=== PATIENT | female | born 1940 | race Caucasian/White ===

== ENCOUNTER 2018-06-07 04:57 | Emergency (ER) | payer MEDICARE, OTHER ==
[2018-06-07 05:11] VITALS: O2SAT 98
[2018-06-07] MEDS ORDERED: Dextrose 5% -0.45 NaCl 1000 ML 1,000 ML IV SCH (05:15)
--- NOTE | 2018-06-07 05:21 | ERPHSYRPT ---
- History of Present Illness Time Seen by Provider: 06/07/18 05:12 Source: patient Exam Limitations: no limitations Patient Subjective Stated Complaint: per ems, pt's blood sugar was low at home Triage Nursing Assessment: pt awake, alert and oriented, asnwers questions approp. pt arrive per ambulance, transfer to stretcher with assist of 4. respirations nonlabored with lungs cta. pupils equal and reactive. bilat upper and lower ext strength equal, wnl. Physician History: 77-year-old white female arrives with complaint of decreased level of consciousness at home patient's family members stated that they've done a blood sugar and noted to have a blood sugar in the 200s however when medics arrived patient was noted to have a blood sugar of 36-48. Medics state that they gave the patient one amp of D50 she arrives she is alert oriented 3. Patient states she has not been ill lately she denies any chest pain shortness of breath she denies any urinary symptoms past medical history includes cataracts, hyperlipidemia, diabetes type 2, hypothyroidism Past surgical history includes appendectomy cholecystectomy hysterectomy cataracts and back surgery Social history patient denies tobacco alcohol or illicit drug use . Timing/Duration: today (just prior to arrival) Severity: moderate Modifying Factors: Improves With: nothing Associated Symptoms: other (confused with decreased level of consciousness and low blood sugars at home this am), No nausea, No vomiting, No abdominal pain, No shortness of breath, No heartburn, No diaphoresis, No cough, No chills, No chest pain, No fever, No headaches, No loss of appetite, No malaise, No rash, No syncope, No seizure, No weakness Allergies/Adverse Reactions: codeine Allergy (Mild, Verified 06/07/18 05:11) "feel floaty" Home Medications: Aspirin EC 81 mg [Ecotrin 81 mg] 81 mg PO UD 03/29/13 [History] Insulin Detemir [Levemir] 24 unit SQ HS 03/29/13 [History] Levothyroxine Sodium 100 Mcg [Synthroid 100 Mcg] 100 mcg PO DAILY 03/29/13 [History] Pravastatin Sodium [Pravachol] 40 mg PO HS 03/29/13 [History] Insulin Detemir [Levemir] 6 unit SQ DAILY 06/13/16 [History] Hx Tetanus, Diphtheria Vaccination/Date Given: Yes Hx Influenza Vaccination/Date Given: No Hx Pneumococcal Vaccination/Date Given: Yes Immunizations Up to Date: Yes - Review of Systems Constitutional: No Fever, No Chills Eyes: No Symptoms Ears, Nose, & Throat: No Symptoms Respiratory: No Cough, No Dyspnea Cardiac: No Chest Pain, No Edema, No Syncope Abdominal/Gastrointestinal: No Abdominal Pain, No Nausea, No Vomiting, No Diarrhea Genitourinary Symptoms: No Dysuria Musculoskeletal: No Back Pain, No Neck Pain Skin: No Rash Neurological: Other (Confused and decreased LOC at home this am), No Dizziness, No Focal Weakness, No Gait Changes, No Headache, No Irritability, No Lethargy, No Paralysis, No Parasthesia, No Seizure, No Sensory Changes, No Speech Changes , No Tics, No Tremors, No Vertigo Psychological: No Symptoms Endocrine: Other (decreased blood sugars this am), No Polyuria, No Polydipsia, No Hair Changes, No Cold Intolerance, No Excessive Sweating Hematologic/Lymphatic: No Symptoms All Other Systems: Reviewed and Negative - Past Medical History Pertinent Past Medical History: Yes Neurological History: No Pertinent History ENT History: Cataracts Cardiac History: High Cholesterol Respiratory History: No Pertinent History Endocrine Medical History: Diabetes Type II, Hypothyroidism Musculoskeletal History: No Pertinent History GI Medical History: No Pertinent History History: No Pertinent History Psycho-Social History: No Pertinent History Female Reproductive Disorders: No Pertinent History - Past Surgical History Past Surgical History: Yes Neuro Surgical History: No Pertinent History Cardiac: No Pertinent History Respiratory: No Pertinent History Gastrointestinal: Appendectomy, Cholecystectomy Genitourinary: No Pertinent History Musculoskeletal: Orthopedic Surgery Female Surgical History: Hysterectomy Other Surgical History: BACK - Social History Smoking Status: Never smoker Exposure to second hand smoke: No Drug Use: none Patient Lives Alone: No (with sister) - Nursing Vital Signs Nursing Vital Signs: Initial Vital Signs Pulse Rate 82 06/07/18 04:59 Respiratory Rate 18 06/07/18 04:59 Blood Pressure 185/92 06/07/18 04:59 O2 Sat by Pulse Oximetry 98 06/07/18 04:59 Pain Scale Pain Intensity 0 - Physical Exam General Appearance: no apparent distress, alert Eye Exam: PERRL/EOMI, eyes nml inspection Ears, Nose, Throat Exam: normal ENT inspection, TMs normal, pharynx normal, moist mucous membranes Neck Exam: normal inspection, non-tender, supple, full range of motion Respiratory Exam: normal breath sounds, lungs clear, No respiratory distress Cardiovascular Exam: regular rate/rhythm, normal heart sounds, normal peripheral pulses Gastrointestinal/Abdomen Exam: soft, normal bowel sounds, No tenderness, No mass Back Exam: normal inspection, normal range of motion, No CVA tenderness, No vertebral tenderness Extremity Exam: normal inspection, normal range of motion, pelvis stable Neurologic Exam: alert, oriented x 3, cooperative, search strategist II-XII nml as tested, normal mood/affect, nml cerebellar function, nml station & gait, sensation nml, No motor deficits Skin Exam: normal color, warm, dry, No rash Lymphatic Exam: No adenopathy SpO2 Interpretation: normal (98%) SpO2: 98 Oxygen Delivery: Room Air - Course Nursing assessment & vital signs reviewed: Yes EKG Interpreted by Me: RATE (77 bpm), Sinus Rhythm, NORMAL AXIS, Other (EKG, sinus rhythm with first degree AV block, 77 bpm, no acute ST or T wave changes noted) Ordered Tests: Active Orders 24 hr Category Date Time Status Accucheck STAT Care 06/07/18 05:09 Active Accucheck STAT Care 06/07/18 06:21 Active Accucheck STAT Care 06/07/18 06:58 Active EKG-ER Only STAT Care 06/07/18 05:09 Active IV Insertion STAT Care 06/07/18 05:09 Active Pulse Oximetry (ED) STAT Care 06/07/18 05:09 Active CBC W DIFF Stat Lab 06/07/18 05:42 Completed CMP Stat Lab 06/07/18 05:42 Completed UA W/RFX UR CULTURE Stat Lab 06/07/18 06:33 Completed Medication Summary Generic Name Dose Route Start Last Admin Trade Name Freq PRN Reason Stop Dose Admin Dextrose/Sodium Chloride 1,000 mls @ 100 mls/hr 06/07/18 05:15 06/07/18 05:29 Dextrose 5% -0.45 Nacl 1000 Ml IV 07/07/18 05:14 100 mls/hr .Q10H KARI Administration Lab/Rad Data: Laboratory Result Diagrams 06/07/18 05:42 06/07/18 05:42 Laboratory Results 11/22/18 11/22/18 11/22/18 Range/Units 06:33 05:42 05:42 WBC 5.5 (4.0-10.5) K/mm3 RBC 3.77 L (4.1-5.4) M/mm3 Hgb 11.7 L (12.0-16.0) gm/dl Hct 36.6 (35-47) % MCV 97.1 (78-100) fl MCH 31.0 (26-32) pg MCHC 32.0 (32-36) g/dl RDW 13.3 (11.5-14.0) % Plt Count 143 L (150-450) K/mm3 MPV 10.7 H (6-9.5) fl Gran % 75.3 H (36.0-66.0) % Eos # (Auto) 0.05 (0-0.5) Absolute Lymphs (auto) 0.91 L (1.0-4.6) Absolute Monos (auto) 0.38 (0.0-1.3) Lymphocytes % 16.5 L (24.0-44.0) % Monocytes % 6.9 (0.0-12.0) % Eosinophils % 0.9 (0.00-5.0) % Basophils % 0.4 (0.0-0.4) % Absolute Granulocytes 4.14 (1.4-6.9) Basophils # 0.02 (0-0.4) Sodium 138 (137-145) mmol/L Potassium 4.0 (3.5-5.1) mmol/L Chloride 105 (98-107) mmol/L Carbon Dioxide 22 (22-30) mmol/L Anion Gap 14.2 (5-15) MEQ/L BUN 28 H (7-17) mg/dL Creatinine 0.71 (0.52-1.04) mg/dL Estimated GFR > 60.0 ML/MIN Glucose 146 H (74-106) mg/dL Calcium 9.3 (8.4-10.2) mg/dL Total Bilirubin 0.30 (0.2-1.3) mg/dL AST 41 H (14-36) U/L ALT 25 (0-35) U/L Alkaline Phosphatase 76 (38-126) U/L Serum Total Protein 7.6 (6.3-8.2) g/dL Albumin 4.3 (3.5-5.0) g/dL Urine Color STRAW (YELLOW) Urine Appearance CLEAR (CLEAR) Urine pH 6.0 (5-6) Ur Specific [place] 1.011 (1.005-1.025) Urine Protein 30 (Negative) Urine Ketones NEGATIVE (NEGATIVE) Urine Blood NEGATIVE (0-5) Norris/ul Urine Nitrite NEGATIVE (NEGATIVE) Urine Bilirubin NEGATIVE (NEGATIVE) Urine Urobilinogen NEGATIVE (0-1) mg/dL Ur Leukocyte Esterase NEGATIVE (NEGATIVE) Urine WBC (Auto) NONE (0-5) /HPF Urine RBC (Auto) NONE (0-2) /HPF U Epithel Cells (Auto) NONE (FEW) /HPF Urine Mucus (Auto) SLIGHT (NEGATIVE) /HPF Urine Culture Reflexed NO (NO) Urine Glucose 50 (NEGATIVE) mg/dL - Progress Progress: improved Progress Note: 06/07/18 06:58 77-year-old white female arrives with complaint of hypoglycemic episode at home. Patient was given one amp of D50 at home. She has been placed on D5 normal saline here in the emergency room patient's labs are normal. Patient is feeling much better and wants to go home. Patient's Accu-Chek 219. I've asked the nurses shut off her D5 normal saline. Will repeat Accu-Chek one half hour after shutting off D5 normal saline patient will be discharged if stable. - Departure Time of Disposition: 06:59 Departure Disposition: Home Clinical Impression: hypoglycemic episode, Mental status change resolved Condition: Fair Critical Care Time: No Referrals: KRISTI FAIR [Primary Care Provider] - Additional Instructions: Return home. Monitor your blood sugars today. Follow-up with your family doctor. Return or follow-up with your family doctor if problems. Return for acute distress or for severe symptoms.
[2018-06-07] MEDS ORDERED: Dextrose 5% -0.45 NaCl 1000 ML 1,000 ML IV ONE (05:24)
[2018-06-07 05:43] LABS: BASOPHIL % 0.4 % (0.0-0.4); Basophil (Absolute #) 0.02 (0-0.4); Eosinophil % 0.9 % (0.00-5.0); Eosinophil (Absolute #) 0.05 (0-0.5); Granulocyte Absolute (ANC) 4.14 (1.4-6.9); Granulocytes % 75.3 % (36.0-66.0); Hematocrit 36.6 % (35-47); Hemoglobin 11.7 gm/dl (12.0-16.0); Lymphocyte (Absolute #) 0.91 (1.0-4.6); Lymphocytes % 16.5 % (24.0-44.0); Mean Cell Volume 97.1 fl (78-100); Mean Platelet Volume 10.7 fl (6-9.5); Monocyte (Absolute #) 0.38 (0.0-1.3); Monocytes % 6.9 % (0.0-12.0); Platelet Count 143 K/mm3 (150-450); Red Blood Count 3.77 M/mm3 (4.1-5.4); Red Cell Distribution Width 13.3 % (11.5-14.0); White Blood Count 5.5 K/mm3 (4.0-10.5)
[2018-06-07 06:06] LABS: ALBUMIN 4.3 g/dL (3.5-5.0); ALKALINE PHOSPHATASE 76 U/L (38-126); ANION GAP 14.2 MEQ/L (5-15); BLOOD UREA NITROGEN 28 mg/dL (7-17); CHLORIDE 105 mmol/L (98-107); Calcium 9.3 mg/dL (8.4-10.2); Carbon Dioxide 22 mmol/L (22-30); Creatinine 1 0.71 mg/dL (0.52-1.04); Glucose 146 mg/dL (74-106); SGOT/AST 41 U/L (14-36); SGPT/ALT 25 U/L (0-35); SODIUM 138 mmol/L (137-145); Total Protein 7.6 g/dL (6.3-8.2)
[2018-06-07 06:32] VITALS: BP 149/87; PULSE 67
[2018-06-07 06:32] LABS: Appearance CLEAR (CLEAR); Bilirubin NEGATIVE (NEGATIVE); Blood NEGATIVE Ery/ul (0-5); Glucose 50 mg/dL (NEGATIVE); Ketones NEGATIVE (NEGATIVE); Leukocyte Esterase NEGATIVE (NEGATIVE); Nitrite NEGATIVE (NEGATIVE); Protein,Urine Dip 30 (Negative); Specific Gravity 1.011 (1.005-1.025); Urobilinogen NEGATIVE mg/dL (0-1)
== END 2018-06-07 07:43 | disposition home or self-care (01) ==
LOC: ED 04:57
DX: E11.649 Type 2 diabetes mellitus with hypoglycemia without coma (principal); Z79.899 Other long term (current) drug therapy; Z79.4 Long term (current) use of insulin
CPT/HCPCS: 36000; 36415; 80053; 81001; 82962; 85025; 93005; 96360; 99284

== ENCOUNTER 2020-11-28 11:47 | Emergency (ER) | payer MEDICARE, OTHER ==
--- NOTE | 2020-11-28 12:49 | ERPHSYRPT ---
- History of Present Illness Time Seen by Provider: 11/28/20 12:43 Source: patient Exam Limitations: no limitations Patient Subjective Stated Complaint: Pt states "I have diabetes and I have a spot on my foot starting and I thought I should get it checked out." Triage Nursing Assessment: Pt presented alert and oriented x3, skin pwd Pt ambulates with a slow gait and slight limp. Pt has approx 4 cm x3 cm wound developing, non blanching, tough hard skin, mildly tender Physician History: Patient is 80-year-old female with significant past medical history of diabetes insulin-dependent developed scab on her right foot bottom of the great toe 2 days ago with some scab formation. Because of her diabetic status she wants to be checked out for wound. She denies any other symptoms Timing/Duration: yesterday Associated Symptoms: denies symptoms Allergies/Adverse Reactions: codeine Allergy (Mild, Verified 06/07/18 05:11) "feel floaty" Home Medications: Aspirin EC 81 mg [Ecotrin 81 mg] 81 mg PO UD 03/29/13 [History] Levothyroxine Sodium 100 Mcg [Synthroid 100 Mcg] 100 mcg PO DAILY 03/29/13 [History] Pravastatin Sodium [Pravachol] 40 mg PO HS 03/29/13 [History] Insulin Glargine,Hum.rec.anlog [Toujeo Solostar] 300 unit SQ DAILY 11/28/20 [History] lisinopriL [Lisinopril] 2.5 mg PO DAILY 11/28/20 [History] Hx Tetanus, Diphtheria Vaccination/Date Given: Yes Hx Influenza Vaccination/Date Given: Yes Hx Pneumococcal Vaccination/Date Given: No Immunizations Up to Date: Yes Travel Risk - International Travel Have you traveled outside of the country in past 3 weeks: No - Coronavirus Screening Are you exhibiting any of the following symptoms?: No Close contact with a COVID-19 positive Pt in past 14-21 Days: No - Vaccine Status Have you recieved a Covid-19 vaccination: Yes Bending Frame Operator: Moderna - Vaccination Dates Date of 2cond Vaccination (if applicable): 09/11/2020 - Review of Systems Constitutional: No Symptoms Eyes: No Symptoms Ears, Nose, & Throat: No Symptoms Respiratory: No Symptoms Cardiac: No Symptoms Abdominal/Gastrointestinal: No Symptoms Genitourinary Symptoms: No Symptoms Musculoskeletal: No Symptoms Skin: Induration (right base of great toe) - Past Medical History Pertinent Past Medical History: Yes Neurological History: No Pertinent History ENT History: Cataracts Cardiac History: High Cholesterol Respiratory History: No Pertinent History Endocrine Medical History: Diabetes Type II, Hypothyroidism Musculoskeletal History: No Pertinent History GI Medical History: No Pertinent History History: No Pertinent History Psycho-Social History: No Pertinent History Female Reproductive Disorders: No Pertinent History - Past Surgical History Past Surgical History: Yes Neuro Surgical History: No Pertinent History Cardiac: No Pertinent History Respiratory: No Pertinent History Gastrointestinal: Appendectomy, Cholecystectomy Genitourinary: No Pertinent History Musculoskeletal: Orthopedic Surgery Female Surgical History: Hysterectomy Other Surgical History: BACK - Social History Smoking Status: Never smoker Exposure to second hand smoke: Yes Drug Use: none Patient Lives Alone: No - Female History Hx Now: No - Nursing Vital Signs Nursing Vital Signs: Initial Vital Signs Temperature 98.3 F 11/28/20 12:24 Pulse Rate 95 H 11/28/20 12:24 Respiratory Rate 20 11/28/20 12:24 Blood Pressure 169/68 11/28/20 12:24 O2 Sat by Pulse Oximetry 100 11/28/20 12:24 Pain Scale Pain Intensity 1 - Physical Exam General Appearance: no apparent distress Eye Exam: PERRL/EOMI Ears, Nose, Throat Exam: normal ENT inspection Neck Exam: normal inspection Respiratory Exam: normal breath sounds Cardiovascular Exam: regular rate/rhythm Gastrointestinal/Abdomen Exam: soft Extremity Exam: normal inspection, other (scab at right great toe base) Neurologic Exam: alert, oriented x 3 Skin Exam: normal color Lymphatic Exam: No adenopathy SpO2 Interpretation: normal SpO2: 100 O2 Delivery: Room Air - Course Nursing assessment & vital signs reviewed: Yes - Progress Progress: unchanged Counseled pt/family regarding: diagnosis, need for follow-up (with payroll consultant ) - Departure Departure Disposition: Home Clinical Impression: Diabetic foot ulcer Qualifiers: Diabetic foot ulcer location: toe Diabetes mellitus type: type 2 Laterality: right Non-pressure ulcer stage: limited to breakdown of skin Qualified Code(s): E11.621 - Type 2 diabetes mellitus with foot ulcer; L97.511 - Non-pressure chronic ulcer of other part of right foot limited to breakdown of skin Condition: Stable Critical Care Time: No Referrals: KRISTI FAIR [Primary Care Provider] - Follow Up with PCP/3 days (follow up with Dr John (Podiatry) on monday, walk in at 9 AM 11/30/2020) Instructions: Wound Care (DC) Additional Instructions: see payroll consultant on Monday morning at 9 AM. It is a walk-in clinic so you can walk-in and been seen by Dr. John. Call your diabetic doctor and let her know if she can see you earlier then your regular appointment. Discharge/Care Plan ELOINA ARCHIBALD was seen on 11/28/20 in the Emergency Room. The patient was counseled regarding Diagnosis,Lab results, Imaging studies, need for follow up and when to return to the Emergency Room. Prescriptions given: Discharge Note I have spoken with the patient and/or caregivers. I have explained the patient's condition, diagnosis and treatment plan based on the information available to me at this time. I have answered the patient's and/or caregiver's questions and addressed any concerns. The patient and/or caregivers have as good understanding of the patient's diagnosis, condition and treatment plan as can be expected at this point. The vital signs have been stable. The patient's condition is stable and appropriate for discharge from the emergency department. The patient will pursue further outpatient evaluation with the primary care physician or other designated or consulting physician as outlined in the discharge instructions. The patient and/or caregivers are agreeable to this plan of care and follow-up instructions have been explained in detail. The patient and/or caregivers have received these instruction. The patient/and or caregivers are aware that any significant change in condition or worsening of symptoms should prompt an immediate return to this or the closest emergency department or call 911. Prescriptions: Cephalexin Mh 500 mg [Keflex 500 mg] 500 mg PO Q6H #40 capsule
[2020-11-28 13:15] VITALS: BP 138/56; PULSE 85; O2SAT 95
== END 2020-11-28 13:36 | disposition home or self-care (01) ==
LOC: ED 11:47
DX: L97.511 Non-pressure chronic ulcer of other part of right foot limited to breakdown of skin (principal); E11.621 Type 2 diabetes mellitus with foot ulcer; E03.9 Hypothyroidism, unspecified; Z79.899 Other long term (current) drug therapy
CPT/HCPCS: 99283

== ENCOUNTER 2021-11-01 11:56 | Day surgery (SDC) | payer MEDICARE ==
--- NOTE | 2021-11-01 08:08 | HP ---
DATE OF SURGERY: 11/01/2021 HISTORY OF PRESENT ILLNESS: The patient is an 81-year-old with irregular skin lesion left upper extremity, left neck nodule or cyst and left axilla nodule or cyst. No pain but given the persistence she is interested in biopsy. She had a benign mammogram. She had an ultrasound with question whether she had subcutaneous cyst. She desires excision for definitive treatment. She is worried about the risk of infection. PAST MEDICAL HISTORY: Diabetes, hypothyroidism, hyperlipidemia. PAST SURGICAL HISTORY: Appendectomy. Hysterectomy. Back surgery. Cholecystectomy. MEDICATIONS: Pravastatin, levothyroxine, Humalog, Toujeo. ALLERGIES: CODEINE. FAMILY HISTORY: Heart disease, diabetes, cancer. SOCIAL HISTORY: No alcohol abuse. REVIEW OF SYSTEMS: Fourteen systems reviewed. Negative or noncontributory as above and per preadmission questionnaire. PHYSICAL EXAMINATION: GENERAL: No acute distress. HEENT: Sclerae nonicteric. NECK: No JVD. SKIN: She does have a nodule or a cyst in the left neck, additionally left axilla nodular cyst. She has on left upper extremity irregular pigmented lesion of indeterminate behavior in need of excision. CHEST: Equal excursion, nonlabored breathing. CVS: Regular rate and rhythm. ABDOMEN: Soft, nontender. EXTREMITIES: No cyanosis. Otherwise pertinent for as mentioned above. NEURO: Alert, oriented, moving extremities grossly symmetrically. PSYCH: Appropriate mood and affect. IMPRESSION: She has left neck nodule or cyst in need of excision as well as left axilla nodule or cyst and left upper extremity irregular pigmented lesion of indeterminate behavior in need of excision, will excise as an outpatient under general anesthesia. General risk of bleeding or infection, dehiscence possibly requiring packing, general risk of aches, pains, burning or numbness possibly mcc but not limited to. What we excise will not recur but could get similar nodule or cyst adjacent to or elsewhere on her body. Will proceed with proceed with excisional biopsy of left upper extremity irregular pigment lesion of indeterminate behavior, excisional biopsy of left neck nodule or cyst, excisional biopsy of left axilla nodule or cyst as an outpatient.
[2021-11-01] MEDS ORDERED: CEFAZOLIN 2 GM-D5W BAG** 2 GM/50 ML ML IV SCH (12:30)
[2021-11-01] MEDS ORDERED: Lactated Ringers 1,000 ML IV SCH (12:30)
[2021-11-01] MEDS ORDERED: CEFAZOLIN 2 GM-D5W BAG** 2 GM/50 ML ML IV ONE (12:31)
[2021-11-01] MEDS ORDERED: Lactated Ringers 1,000 ML IV ONE (12:31)
[2021-11-01] MEDS ORDERED: SUBLIMAZE 100 MCG/2 ML ONE (16:16)
[2021-11-01] MEDS ORDERED: DIPRIVAN 200 MG/20 ML IV ONE (16:16)
[2021-11-01] MEDS ORDERED: Sensorcaine 0.25% 10 ML ONE (16:20)
[2021-11-01 18:25] VITALS: O2SAT 92
[2021-11-01 18:40] VITALS: BP 176/86; PULSE 70
--- NOTE | 2021-11-02 09:59 | OP ---
SURGERY DATE/TIME: 11/01/2021 1615 PREOPERATIVE DIAGNOSES: 1) Enlarging lesion of indeterminate behavior left axilla. 2) Enlarging subcutaneous nodule upper posterior arm near the axilla. 3) Enlarging left neck cyst. POSTOPERATIVE DIAGNOSES: 1) Enlarging lesion of indeterminate behavior left axilla. 2) Enlarging subcutaneous nodule upper posterior arm near the axilla. 3) Enlarging left neck cyst. PROCEDURES: 1) Excisional biopsy of 2.3 cm lipomatous density posterior upper left arm with intermediate closure. 2) Excisional biopsy of anterior upper arm lesion indeterminate behavior approximately 2 cm with margins with intermediate closure. 3) Excisional biopsy of lower upper arm irregular lesion of indeterminate behavior approximately 5 cm with margins with intermediate closure. 4) Excisional biopsy of upper left axilla approximately 3 cm indeterminate behavior incised en bloc approximately 3 cm with margins with intermediate closure. 5) Excisional biopsy of the lower left axilla lesion of indeterminate behavior approximately 1.5 cm with margins with intermediate closure. 6) Excisional biopsy of left neck cyst approximately 1.5 cm. SURGEON: Dr. Manolo Ragland. ANESTHESIA: General. ESTIMATED BLOOD LOSS: Minimal. INDICATIONS: As noted above. Risks and benefits explained in detail and not limited to and consent obtained. DESCRIPTION OF PROCEDURE AND FINDINGS: The patient is taken to the operating room. Prior to putting her asleep, she confirmed the locations and the lesions were marked and confirmed. General anesthesia induced. She is prepped and draped in the usual sterile fashion. After official time out and no disagreement with planned procedure, starting first at the upper arm anterior marking out around the irregular lesion of indeterminate behavior. Dissection carried down to normal appearing subcutaneous tissue this is closed with 3-0 Vicryl and 4-0 Vicryl. It measured about 2 cm with margins. The upper posterior upper arm subcutaneous nodule dissection carried down. It seemed to be a lipomatous density. This lipoma was carefully dissected out measuring about 2.3 cm and the specimen passed off for pathology. The site was closed with 3-0 Vicryl and 4-0 Vicryl and some Dermabond applied at the end. Then the anterior upper left axilla irregular lesion of indeterminate behavior excised en bloc and about 2 cm in size with margins, closed in intermediate fashion with 3-0 Vicryl closing the subcu, skin closed with 4-0 Vicryl. The lower left axilla is approximately 1.5 cm area excised dissecting down to normal appearing subcutaneous tissue this is closed with 3-0 Vicryl, skin closed with 4-0 Vicryl. Dermabond was applied in all of these. 0.25% Marcaine local around all of the incisions. Attention is then turned to the left neck cyst. Small piece of skin overlying dissection carried down circumferentially around this cyst, measured about 1.5 cm in size passed off for pathology. It is closed with 3-0 Vicryl subcu. Skin closed with 4-0 Vicryl. Steri-Strips and sterile dressing applied. Attention is then turned to the irregular pigmented lesion on the lower upper arm. Dissection carried down around in spindle-shaped fashion around this. Dissection carried down deep to normal appearing subcutaneous tissue. A small, little veins underneath ligated as necessary with some pinpoint cautery. The specimen measured about 5 cm with margins and passed off for pathology. Good hemostasis noted. It is then closed in layers with interrupted 3-0 Vicryl in deep superficial subcu. Skin closed with 4-0 Vicryl. Steri-Strips and sterile dressing applied. The patient tolerated the procedure well. There were no immediate complications. She was transferred to the recovery room in stable condition.
== END 2021-11-01 19:00 | disposition home or self-care (01) ==
LOC: SDC 11:56
PROVIDERS: ATTEND Surgery
DX: D17.22 Benign lipomatous neoplasm of skin and subcutaneous tissue of left arm (principal); D03.62 Melanoma in situ of left upper limb, including shoulder; L82.1 Other seborrheic keratosis; L72.0 Epidermal cyst; R22.32 Localized swelling, mass and lump, left upper limb; L98.8 Other specified disorders of the skin and subcutaneous tissue; E11.9 Type 2 diabetes mellitus without complications
CPT/HCPCS: 82947; 88304; 88305; 88341; 88342; 99100; J0690; J2704; J3010

== ENCOUNTER 2021-12-06 08:33 | Day surgery (SDC) | payer MEDICARE ==
--- NOTE | 2021-12-06 08:20 | HP ---
DATE OF SURGERY: 12/06/2021 HISTORY OF PRESENT ILLNESS: The patient is an 82-year-old who has prior history of skin some lesion, one was pigmented and a little bit irregular. It came back melanoma in situ. She is in need of wide excision. PAST MEDICAL HISTORY: Diabetes, hypothyroidism, hyperlipidemia. PAST SURGICAL HISTORY: Appendectomy. Cholecystectomy. Back surgery. Hysterectomy. MEDICATIONS: Pravastatin, levothyroxine, Toujeo. ALLERGIES: CODEINE. FAMILY HISTORY: Diabetes, heart disease, cancer. SOCIAL HISTORY: No alcohol abuse. REVIEW OF SYSTEMS: Fourteen systems reviewed. Negative or noncontributory as above and per preadmission questionnaire. She had some other cysts and lesions excised that were benign recently. Lipoma in the axilla. She had keratosis in a couple different areas as well as epidermal inclusion cyst on her neck. Her left upper arm lesion was a melanoma in situ. She is in need of wide excision. PHYSICAL EXAMINATION: GENERAL: No acute distress. HEENT: Sclerae nonicteric. NECK: No JVD. CHEST: Equal excursion, nonlabored breathing. CVS: Regular rate and rhythm. ABDOMEN: Soft. EXTREMITIES: She has a well healed incision on her left upper arm in need of wide of excision. SKIN: Otherwise dry. PSYCH: Appropriate mood and affect. IMPRESSION: Melanoma in situ with involved margin needs wide excision. As this is only in situ, I do not feel that she needs any biopsy as this is only in situ but needs wide excision possible skin graft. General risk of bleeding or infection, risk of aches, pains at graft donor site if necessary as well as risk of wound dehiscence, risk of failure take of the graft possibly requiring healing by secondary intent or other procedures, risk of involved margins possibly requiring other procedures, general risk of anesthesia or sedation but not limited to, consent obtained. Will proceed with wide excision left upper arm of in situ biopsy site possible skin graft.
[~2021-12-06 08:33] MED LIST: Lactated Ringers 1,000 ML IV ONE; Sensorcaine 0.25% 10 ML ONE
[2021-12-06] MEDS ORDERED: CEFAZOLIN 2 GM-D5W BAG** 2 GM/50 ML ML IV ONE (08:46)
[2021-12-06] MEDS: Lactated Ringers 1,000 ML IV SCH (08:51)
[2021-12-06] MEDS: CEFAZOLIN 2 GM-D5W BAG** 2 GM/50 ML ML IV SCH (08:51)
[2021-12-06] MEDS ORDERED: HUMULIN R ONE ×2 (09:46→10:31)
[2021-12-06] MEDS: HUMULIN R IV ONE ×2 (09:51→10:35)
[2021-12-06] MEDS ORDERED: Quelicin Fliptop 200 MG/10 ML ONE (10:41)
[2021-12-06] MEDS ORDERED: DIPRIVAN 200 MG/20 ML IV ONE (10:41)
[2021-12-06] MEDS ORDERED: PHENYLEPHRINE HCL ONE (10:41)
[2021-12-06] MEDS ORDERED: Xylocaine-Mpf 2% 5 Ml Vial ONE (10:41)
[2021-12-06] MEDS ORDERED: Zofran 4 MG/2 ML VIAL ONE (10:41)
[2021-12-06] MEDS ORDERED: MINERAL OIL LIGHT 10 ML FOR SURGERY ONE (10:41)
[2021-12-06] MEDS ORDERED: SUBLIMAZE 100 MCG/2 ML ONE (10:42)
[2021-12-06] MEDS ORDERED: Versed 2 MG/2 ML Injection ONE (10:55)
[2021-12-06] MEDS ORDERED: Pre-Attached Lta Kit TP ONE (10:58)
[2021-12-06] MEDS ORDERED: Ephedrine Sulfate 50 MG/ML ONE (11:58)
[2021-12-06] MEDS ORDERED: ATROPINE SULFATE 1MG ONE (11:58)
[2021-12-06 14:04] VITALS: BP 161/70; PULSE 82; O2SAT 95
--- NOTE | 2021-12-07 08:28 | OP ---
SURGERY DATE/TIME: 12/06/2021 1054 PREOPERATIVE DIAGNOSIS: History of melanoma in situ left upper arm in need of wide excision biopsy site. POSTOPERATIVE DIAGNOSIS: History of melanoma in situ left upper arm in need of wide excision biopsy site. PROCEDURE: Wide excision melanoma in situ biopsy site with local advancement flap closure (approximately 13 cm including margin). SURGEON: Dr. Manolo Ragland. EVENT SALES REPRESENTATIVE: Bessy Orr, Medical Student III. ANESTHESIA: General. ESTIMATED BLOOD LOSS: Minimal. INDICATIONS: The site had been confirmed and marked in the preoperative holding area, consent obtained. DESCRIPTION OF PROCEDURE AND FINDINGS: The patient is taken to the operating room. General anesthesia induced. She is prepped and draped in the usual sterile fashion. After official time out and no disagreement with planned procedure, marking out a centimeter around this area to insure adequate margins. Dissection carried down to underlying fascia to the deep subcu. Small, little oozing duralumin metalworker off a vein was ligated with 2-0 ligature and tie. The specimen is passed off. It measured about 13 cm in size and passed off. The flaps were undermined in either direction and advanced back to the midline with some interrupted 3-0 Vicryl in the deep subcu flaps. Once this was accomplished 4-0 Vicryl was used to close the long 13 cm specimen with margins, 4-0 Vicryl used to close the skin in running subcuticular fashion. Skin with interrupted 2-0 Prolene used to reinforce the area. Steri-Strips and sterile dressing applied. The patient tolerated the procedure well. Findings discussed with the family out in the waiting area including the fact that we felt that it was just loose enough to allow for avoidance of skin graft at this time but if she broke this area open may have to place a skin graft at a later date. Otherwise, I will see her back in the office to go over biopsy results in a couple of weeks. Sterile dressing applied. The patient transferred to the recovery room in stable condition.
== END 2021-12-06 14:00 | disposition home or self-care (01) ==
LOC: SDC 08:33
PROVIDERS: ATTEND Surgery
DX: C43.62 Malignant melanoma of left upper limb, including shoulder (principal); Z86.006 Personal history of melanoma in-situ; E11.9 Type 2 diabetes mellitus without complications; Z80.9 Family history of malignant neoplasm, unspecified
CPT/HCPCS: 82947; 99100; J0330; J0461; J0690; J1815; J2250; J2370; J2405; J2704; J3010; A9270-GY